=== PATIENT | male | born 1970 | race Two or more races ===

== ENCOUNTER 2022-11-04 10:57 | Emergency (ER) | payer BC, MEDICAID, OTHER, SELFPAY ==
[~2022-11-04] VITALS: Ht 185.4 cm; Wt 121.1 kg
[2022-11-04 10:58] VITALS: BP 131/80; TEMP 98.6; O2SAT 100
[2022-11-04] MEDS ORDERED: METF500T13 PO (11:05)
[2022-11-04] MEDS ORDERED: LISI5TAB11 PO (11:06)
[2022-11-04 11:40] LABS: BASO % 0.4 % (0.0-1.0); EOS # 0.1 10^3/uL (0.0-0.5); EOS % 0.5 % (0.0-3.0); HEMATOCRIT 43.4 % (42.0-52.0); HEMOGLOBIN 15.2 g/dl (13.5-17.5); LYMPH % 9.8 % (24.0-44.0); MEAN CORPUSCULAR VOLUME 82.7 fl (80.0-96.0); MONO # 1.2 10^3/uL (0.0-0.8); MONO % 12.2 % (2.0-8.0); NEUTROPHILS # 7.5 10^3/uL (1.5-8.5); NEUTROPHILS % 76.6 % (36.0-66.0); PLATELET COUNT, AUTOMATED 155 10^3/uL (150-450); RED BLOOD COUNT 5.25 10^6/uL (4.30-6.10); WHITE BLOOD COUNT 9.8 10^3/uL (4.0-10.0)
[2022-11-04 11:55] LABS: ERYTHROCYTE SEDIMENTATION RATE 54 mm/hr (0-20)
[2022-11-04 12:05] LABS: BLOOD UREA NITROGEN 12 MG/DL (9-23); CALCIUM LEVEL 8.6 MG/DL (8.5-10.1); CARBON DIOXIDE LEVEL 23 MMOL/L (20-31); CHLORIDE LEVEL 104 MMOL/L (98-107); CREATININE FOR GFR 0.77 MG/DL (0.70-1.30); GLOMERULAR FILTRATION RATE > 60.0 (>56); GLUCOSE, FASTING 169 MG/DL (60-100); POTASSIUM SERUM 3.9 MMOL/L (3.5-5.1); SODIUM LEVEL 134 MMOL/L (136-145)
[2022-11-04 12:15] LABS: INR 1.08; PROTHROMBIN TIME 14.2 SECONDS (12.5-14.5)
[2022-11-04 12:16] LABS: PARTIAL THROMBOPLASTIN TIME 28.5 SECONDS (24.8-34.2)
[2022-11-04 12:52] LABS: RSV AMPLIFICATION NEGATIVE (NEGATIVE)
[2022-11-04] MEDS ORDERED: CLINDAMYCIN 600 MG in IV 1 EA IV ONE (13:45)
[2022-11-04] MEDS ORDERED: DOXY-443 PO (14:45)
== END 2022-11-04 14:55 | disposition home or self-care (01) ==
LOC: M ED 10:57
DX: L03.115 Cellulitis of right lower limb (principal); E11.9 Type 2 diabetes mellitus without complications; I10 Essential (primary) hypertension; F17.200 Nicotine dependence, unspecified, uncomplicated; Z88.0 Allergy status to penicillin; Z79.4 Long term (current) use of insulin; Z79.811 Long term (current) use of aromatase inhibitors; Z79.899 Other long term (current) drug therapy
CPT/HCPCS: 80047; 80048; 85025; 85610; 85652; 85730; 86140; 87040; 87631; 93971; 96374; 99284; J0737

== ENCOUNTER 2022-11-05 13:10 | Emergency (ER) | payer BC ==
[~2022-11-05] VITALS: Ht 185.4 cm; Wt 121.2 kg
[2022-11-05 13:10] VITALS: BP 159/88; TEMP 97.2; O2SAT 99
[~2022-11-05 13:10] MED LIST: DOXY-443 PO; LISI5TAB11 PO; METF500T13 PO
[2022-11-05 14:18] LABS: HEMOGLOBIN 14.6 g/dl (13.5-17.5); MEAN CORPUSCULAR HEMOGLOBIN 28.8 pg (27.0-33.0); MEAN CORPUSCULAR HGB CONC 34.8 g/dl (32.0-36.5); MEAN CORPUSCULAR VOLUME 82.8 fl (80.0-96.0); PLATELET COUNT, AUTOMATED 196 10^3/uL (150-450); RED BLOOD COUNT 5.07 10^6/uL (4.30-6.10); WHITE BLOOD COUNT 5.8 10^3/uL (4.0-10.0)
[2022-11-05 14:40] LABS: BLOOD UREA NITROGEN 17 MG/DL (9-23); CALCIUM LEVEL 9.1 MG/DL (8.5-10.1); CARBON DIOXIDE LEVEL 25 MMOL/L (20-31); CHLORIDE LEVEL 104 MMOL/L (98-107); CREATININE FOR GFR 0.72 MG/DL (0.70-1.30); GLOMERULAR FILTRATION RATE > 60.0 (>56); GLUCOSE, FASTING 269 MG/DL (60-100); POTASSIUM SERUM 3.7 MMOL/L (3.5-5.1); SODIUM LEVEL 135 MMOL/L (136-145)
[2022-11-05] MEDS ORDERED: CLINDAMYCIN 600 MG in IV 1 EA IV ONE (15:30)
[2022-11-05] MEDS ORDERED: KETOROLAC 30 MG/ML 1ML VIAL IV ONE (15:50)
[2022-11-05 17:23] LABS: ERYTHROCYTE SEDIMENTATION RATE 47 mm/hr (0-20)
== END 2022-11-05 16:16 | disposition home or self-care (01) ==
LOC: M ED 13:10
DX: L03.115 Cellulitis of right lower limb (principal); R19.7 Diarrhea, unspecified; E11.9 Type 2 diabetes mellitus without complications; Z79.84 Long term (current) use of oral hypoglycemic drugs; Z88.0 Allergy status to penicillin; Z79.811 Long term (current) use of aromatase inhibitors; Z79.4 Long term (current) use of insulin; Z79.899 Other long term (current) drug therapy
CPT/HCPCS: 80048; 83605; 85027; 85652; 86140; 87040; 87507; 96365; 96375; 99283; J1885; S0077

== ENCOUNTER 2022-11-26 12:46 | Emergency (ER) | payer BC ==
[~2022-11-26] VITALS: Ht 185.4 cm; Wt 124.5 kg
[2022-11-26 12:47] VITALS: BP 162/101; TEMP 98; O2SAT 99
[2022-11-26 13:45] LABS: BASO # 0.1 10^3/uL (0.0-0.2); BASO % 0.6 % (0.0-1.0); EOS # 0.2 10^3/uL (0.0-0.5); EOS % 2.1 % (0.0-3.0); HEMATOCRIT 40.6 % (42.0-52.0); HEMOGLOBIN 14.3 g/dl (13.5-17.5); LYMPH # 1.5 10^3/uL (1.5-5.0); LYMPH % 17.4 % (24.0-44.0); MEAN CORPUSCULAR HEMOGLOBIN 28.8 pg (27.0-33.0); MEAN CORPUSCULAR HGB CONC 35.2 g/dl (32.0-36.5); MEAN CORPUSCULAR VOLUME 81.9 fl (80.0-96.0); MONO # 1.1 10^3/uL (0.0-0.8); MONO % 12.7 % (2.0-8.0); NEUTROPHILS # 5.7 10^3/uL (1.5-8.5); PLATELET COUNT, AUTOMATED 240 10^3/uL (150-450); RED BLOOD COUNT 4.96 10^6/uL (4.30-6.10); WHITE BLOOD COUNT 8.5 10^3/uL (4.0-10.0)
[2022-11-26 13:53] LABS: ERYTHROCYTE SEDIMENTATION RATE 33 mm/hr (0-20)
[2022-11-26 14:05] LABS: LIPASE 35 U/L (12-53)
[2022-11-26 14:06] LABS: CK-MB VALUE MASS < 1.0 NG/ML (<3.6)
[2022-11-26 14:07] LABS: ALKALINE PHOSPHATASE 76 U/L (46-116); ALT/SGPT 13 U/L (7.0-40); AST/SGOT < 8 U/L (<34); BILIRUBIN,DIRECT 0.3 MG/DL (<0.4); BILIRUBIN,TOTAL 0.8 MG/DL (0.3-1.2); BLOOD UREA NITROGEN 10 MG/DL (9-23); CALCIUM LEVEL 9.6 MG/DL (8.5-10.1); CARBON DIOXIDE LEVEL 23 MMOL/L (20-31); CHLORIDE LEVEL 103 MMOL/L (98-107); CREATININE FOR GFR 0.69 MG/DL (0.70-1.30); GLOMERULAR FILTRATION RATE > 60.0 (>56); GLUCOSE, FASTING 167 MG/DL (60-100); POTASSIUM SERUM 4.2 MMOL/L (3.5-5.1); SODIUM LEVEL 137 MMOL/L (136-145); TOTAL PROTEIN 7.4 G/DL (5.7-8.2)
[2022-11-26 14:09] LABS: CPK CREATINE PHOSPHOKINASE 60 U/L (46-171); MB/CK RELATIVE INDEX 1.66 (< OR =4)
[2022-11-26] MEDS ORDERED: MORPHINE 4 MG/ML 1ML VIAL IV ONE (14:25)
[2022-11-26] MEDS ORDERED: ONDANSETRON 4MG 2ML VIAL IV ONE (14:25)
[2022-11-26] MEDS ORDERED: NS 500 ML IV ONE (14:25)
[2022-11-26] MEDS ORDERED: ISOVUE-370 76% 100ML VIAL As Ordered ONE (14:44)
[2022-11-26 14:46] LABS: INR 1.01; PROTHROMBIN TIME 13.5 SECONDS (12.5-14.5)
[2022-11-26 14:47] LABS: PARTIAL THROMBOPLASTIN TIME 30.6 SECONDS (24.8-34.2)
[2022-11-26] MEDS ORDERED: KETOROLAC 30 MG/ML 1ML VIAL IV ONE (16:00)
[2022-11-26] MEDS ORDERED: CEFDINIR 300 MG CAP (OMNICEF) PO ONE (17:45)
[2022-11-26] MEDS ORDERED: CEFD300C41 PO (18:04)
[2022-11-26] MEDS ORDERED: BENZ200C70 PO (18:04)
[2022-11-26] MEDS ORDERED: PRED20TA PO (18:04)
== END 2022-11-26 18:20 | disposition home or self-care (01) ==
LOC: M ED 12:46
DX: R22.41 Localized swelling, mass and lump, right lower limb (principal); R09.1 Pleurisy; J91.8 Pleural effusion in other conditions classified elsewhere; I10 Essential (primary) hypertension; E11.9 Type 2 diabetes mellitus without complications; Z88.0 Allergy status to penicillin; Z79.811 Long term (current) use of aromatase inhibitors; Z79.52 Long term (current) use of systemic steroids; Z79.4 Long term (current) use of insulin; Z79.899 Other long term (current) drug therapy
CPT/HCPCS: 71046; 71275; 76705; 80048; 80076; 82550; 82553; 83690; 83880; 84484; 85025; 85610; 85652; 85730; 86140; 93005; 93971; 96374; 96375; 99284; J1885; J2405; Q9967